=== PATIENT | female | born 1935 | race Caucasian/White ===

== ENCOUNTER 2019-07-14 13:57 | Emergency (ER) | payer OTHER ==
[~2019-07-14] VITALS: Ht 154.9 cm; Wt 65.2 kg
[2019-07-14 15:14] LABS: BASOPHILS % (AUTO) 0.6 % (0-1); EOSINOPHILS # (AUTO) 0.2 X10'3 (0-0.9); HEMATOCRIT 42.2 % (35.0-45.0); HEMOGLOBIN 14.4 g/dl (12.0-16.0); LYMPHOCYTES # (AUTO) 1.7 X10'3 (1.1-4.8); LYMPHOCYTES % (AUTO) 26.9 % (21-51); MEAN CORPUSCULAR HEMOGLOBIN 33.1 PG (27.0-31.0); MEAN CORPUSCULAR HGB CONC 34.2 g/dL (33.0-36.5); MEAN CORPUSCULAR VOLUME 96.8 FL (78-98); MEAN PLATELET VOLUME 7.3 FL (7.4-10.4); MONOCYTES # (AUTO) 0.5 X10'3 (0-0.9); MONOCYTES % (AUTO) 8.2 % (2-12); NEUTROPHILS % (AUTO) 61.3 % (42-75); PLATELET COUNT 332 X10'3 (140-440); RED BLOOD COUNT 4.36 X10'6 (4.20-5.60); RED CELL DISTRIBUTION WIDTH 13.6 % (11.5-14.5); WHITE BLOOD COUNT 6.5 X10'3 (4.5-11.0)
[2019-07-14 15:45] LABS: ALANINE AMINOTRANSFERASE 24 U/L (12-78); ALBUMIN 3.8 G/DL (3.4-5.0); ALBUMIN/GLOBULIN RATIO 1.3 (1.1-1.5); ALKALINE PHOSPHATASE 70 IU/L (46-116); ANION GAP 6 (8-16); ASPARTATE AMINO TRANSFERASE 18 U/L (10-37); BILIRUBIN,TOTAL 0.4 MG/DL (0.1-1.0); BLOOD UREA NITROGEN 20 MG/DL (7-18); BUN/CREATININE RATIO 25.3 (6.6-38.0); CALCIUM 8.9 MG/DL (8.5-10.1); CHLORIDE 108 MMOL/L (99-107); CREATININE 0.79 MG/DL (0.40-0.90); GLUCOSE 98 MG/DL (70-104); SODIUM 144 MMOL/L (135-145); TOTAL PROTEIN 6.8 G/DL (6.4-8.2); eGFR 70 ML/MIN
[2019-07-14 16:06] VITALS: BP 123/67
== END 2019-07-14 16:07 | disposition home or self-care (01) ==
LOC: ER 13:58
DX: K40.90 Unilateral inguinal hernia, without obstruction or gangrene, not specified as recurrent (principal)
CPT/HCPCS: 36415; 80053; 85025; 85610; 99283

== ENCOUNTER 2019-08-24 07:14 | Day surgery (SDC) | payer MEDICARE, BC ==
[2019-08-20 11:13] LABS: BASOPHILS % (AUTO) 0.5 % (0-1); EOSINOPHILS # (AUTO) 0.1 X10'3 (0-0.9); EOSINOPHILS % (AUTO) 2.4 % (0-6); LYMPHOCYTES # (AUTO) 1.4 X10'3 (1.1-4.8); MEAN CORPUSCULAR HEMOGLOBIN 32.8 PG (27.0-31.0); MEAN CORPUSCULAR HGB CONC 33.9 g/dL (33.0-36.5); MEAN CORPUSCULAR VOLUME 96.7 FL (78-98); MEAN PLATELET VOLUME 7.7 FL (7.4-10.4); MONOCYTES # (AUTO) 0.5 X10'3 (0-0.9); MONOCYTES % (AUTO) 9.1 % (2-12); NEUTROPHILS # (AUTO) 3.8 X10'3 (1.8-7.7); PRE OP HEMATOCRIT 42.4 % (35.0-45.0); PRE OP HEMOGLOBIN 14.4 g/dL (12.0-16.0); PRE OP PLATELET COUNT 291 X10'3 (140-440); RED BLOOD COUNT 4.38 X10'6 (4.20-5.60); RED CELL DISTRIBUTION WIDTH 13.1 % (11.5-14.5)
[2019-08-20 11:32] LABS: ALBUMIN 3.3 G/DL (3.4-5.0); ALBUMIN/GLOBULIN RATIO 1.1 (1.1-1.5); ALKALINE PHOSPHATASE 74 IU/L (46-116); BLOOD UREA NITROGEN 22 MG/DL (7-18); BUN/CREATININE RATIO 27.2 (6.6-38.0); CALCIUM 8.2 MG/DL (8.5-10.1); CHLORIDE 107 MMOL/L (99-107); CREATININE 0.81 MG/DL (0.40-0.90); PRE OP ALT 22 U/L (30-65); PRE OP ANION GAP 4 (8-16); PRE OP AST 20 U/L (10-37); PRE OP BILIRUB, TOTAL 0.3 MG/DL (0.0-1.0); PRE OP GLUCOSE 90 MG/DL (70-104); PRE OP POTASSIUM 4.2 MMOL/L (3.4-5.1); PRE OP SODIUM 140 MMOL/L (135-145); TOTAL CARBON DIOXIDE 28.6 MMOL/L (24-32); TOTAL PROTEIN 6.2 G/DL (6.4-8.2); eGFR 68 ML/MIN
[2019-08-24] VITALS (18 sets, daily range): BP systolic 101–175; BP diastolic 52–82
[~2019-08-24] VITALS: Ht 154.9 cm; Wt 64.6 kg
[~2019-08-24 07:14] MED LIST: ATOR20TA66 PO; C,E,1CAP PO; CALC300T4 PO; ESOM20CA PO; IBAN150T16 PO; LEVO50TA PO; LORA-641 PO; MONT10TA21 PO; OXYM30MI NS; cefazolin/dext.iso 2gm/100ml 100 ML IV ONE; famotidine 20mg tablet PO ONE; ringers solution, lacted 1,000 ML IV SCH
[2019-08-24] MEDS ORDERED: LIDOcaine 1% 30ml preserv. free vial ONE (08:15)
[2019-08-24] MEDS ORDERED: BUPIVAcaine/PF 2.5 mg/ml (0.25%) 30ml vial ONE (08:16)
[2019-08-24] MEDS ORDERED: ringers solution, lacted 1,000 ML IV SCH (08:54)
[2019-08-24] MEDS ORDERED: hydrALAZINE 20mg/ml inj. IV PRN (08:55)
[2019-08-24] MEDS ORDERED: fentaNYL/PF 50MCG/1 ML 2ML syringe IV PRN (08:55)
[2019-08-24] MEDS ORDERED: labetalol 20mg/4ml (5mg/ml) syringe IV PRN (08:55)
[2019-08-24] MEDS ORDERED: ondansetron/PF 4mg/2ml inj IV PRN (08:55)
[2019-08-24] MEDS ORDERED: morphine 4 MG/ML inj SYRINge IV PRN ×2 (08:55)
[2019-08-24] MEDS ORDERED: LIDOcaine 2% (20mg/ml) 5ml vial ONE (09:05)
[2019-08-24] MEDS ORDERED: fentaNYL/PF 50MCG/1 ML 2ML syringe ONE (09:05)
[2019-08-24] MEDS ORDERED: midazolam 2 mg/2 ml injection ONE (09:05)
[2019-08-24] MEDS ORDERED: propofol inj 20 ML IV ONE (09:05)
[2019-08-24] MEDS ORDERED: ondansetron/PF 4mg/2ml inj ONE (09:06)
[2019-08-24] MEDS ORDERED: glycopyrrolate 0.2mg/ml inj ONE (10:03)
--- NOTE | 2019-08-24 10:16 | NUR ---
Received from OR via BED , accompanied by Anesthesiologist and report given by Anesthesiolgist. PATIENT WAKING UP, DENIES PAIN, V/S WNL, NEUROVASCULAR CHECKS INTACT, DRESSING TO ABDOMEN LAP SITES WITH BANDAIDS CDI. SCD ON. 20G PIV TO RUE.
[2019-08-24] MEDS ORDERED: HYDROcodone/acetaminophen 5mg/325mg tablet PO PRN (10:25)
[2019-08-24] MEDS ORDERED: non-formulary drug (Ibandronate Sodium (Boniva) 1 TAB) PO SCH (10:30)
[2019-08-24] MEDS: fentaNYL/PF 50MCG/1 ML 2ML syringe IV PRN ×2 (11:01→11:13)
--- NOTE | 2019-08-24 12:56 | NUR ---
PATIENT A&OX4, STATES PAIN WELL CONTROLLED NOW, V/S WNL, NEUROVASCULAR CHECKS INTACT, DRESSING TO ABDOMEN LAP SITES WITH BANDAIDS CDI. SCD OFF. 20G PIV TO RUE D/C. ALL DC CRITERIA HAS BEEN MET. IV TAKEN OUT WITHOUT COMPLICATIONS. ALL INSTRUCTIONS COVERED AND ALL QUESTIONS ANSWERED AND PATIENT VERBALIZED UNDERSTANDING . DRESSINGS CDI. OUT VIA WHEELCHAIR TO PERSONAL VEHICLE WHERE PATIENT WAS SECURED IN AND DRIVEN HOME BY FAMILY. SCRIPT FOR PAIN MEDS GIVEN TO FAMILY. PATIENT WAS UNABLE TO VOID AND DR BISHOP IS AWARE AND ORDERD STRAIGHT CATH FOR BLADDER SCAN OF 360CC URINE WHICH WAS DONE AND BLADDER WAS EMPTIED. DR BISHOP STATED PATIENT MAY GO HOME AFTER THIS AND TO RETURN TO ER IF SHE IS UNABLE TO VOID LATER. PATIENT WAS INSTRUCTED TO ATEMPT TO VOID PERIODICALLY NEEDED WELL AFTER D/C HOME.
[2019-08-24] MEDS ORDERED: atorvastatin 20mg tablet PO SCH (21:00)
[2019-08-25] MEDS ORDERED: levoTHYROXINE 25mcg tablet PO SCH (07:00)
[2019-08-25] MEDS ORDERED: pantoprazole 40mg Tablet.DR PO SCH (07:30)
[2019-08-25] MEDS ORDERED: calcium carbonate 500mg chew tablet PO SCH (08:00)
[2019-08-25] MEDS ORDERED: OCUVITE ADULT PO SCH (08:00)
[2019-08-25] MEDS ORDERED: loratadine 10mg tablet PO SCH (08:00)
[2019-08-25] MEDS ORDERED: montelukast 10mg tablet PO SCH (08:00)
== END 2019-08-24 12:56 | disposition home or self-care (01) ==
LOC: PAS 07:14
PROVIDERS: ATTEND Surgery
DX: K40.90 Unilateral inguinal hernia, without obstruction or gangrene, not specified as recurrent (principal); E03.9 Hypothyroidism, unspecified; E78.5 Hyperlipidemia, unspecified; K21.9 Gastro-esophageal reflux disease without esophagitis; Z90.12 Acquired absence of left breast and nipple; Z98.51 Tubal ligation status; Z98.890 Other specified postprocedural states; Z79.899 Other long term (current) drug therapy; Z87.891 Personal history of nicotine dependence
CPT/HCPCS: 36415; 49650; 71046; 80053; 82948; 85025; 93005; C1781; J2001; J2250; J2405; J2704; J3010; J3490; A4215; A4618; J7120